=== PATIENT | female | born 1985 ===

== ENCOUNTER 2018-09-21 07:33 | Outpatient (CLI) | payer SELFPAY | END 2018-09-21 07:34 | disposition home or self-care (01) | LOC: C.USIC 07:33 | DX: N92.6 Irregular menstruation, unspecified (principal) ==

== ENCOUNTER 2018-09-22 08:40 | Outpatient (CLI) | payer OTHER, SELFPAY | END 2018-09-22 08:41 | disposition home or self-care (01) | LOC: C.CARD 08:40 | DX: Z00.00 Encounter for general adult medical examination without abnormal findings (principal); R01.1 Cardiac murmur, unspecified; R51 Headache ==